=== PATIENT | female | born 1990 | race Caucasian/White ===

== ENCOUNTER 2016-04-17 12:15 | Day surgery (SDC) | payer BC, OTHER ==
[~2016-04-17 12:15] MED LIST: PREGABALIN 75 MG CAP PO ONE; ceFAZolin 2 GM/DEXTROSE 100 ML IV ONE
[2016-04-17] MEDS ORDERED: fentaNYL 250 MCG/5 ML INJ ONE (12:45)
[2016-04-17] MEDS ORDERED: PROPOFOL/EMULSION 500 MG/50 ML BOTTLE IV ONE (12:46)
[2016-04-17] MEDS ORDERED: CEFAZOLIN 2 GM/DEXTROSE/100 ML BAG IV ONE (13:25)
[2016-04-17] MEDS ORDERED: ACETAMINOPHEN 500 MG TAB PO ONE (13:30)
[2016-04-17] MEDS ORDERED: PREGABALIN 75 MG CAP PO ONE (13:30)
[2016-04-17] MEDS ORDERED: SCOPOLAMINE HYDROBROMIDE 1.5 MG PATCH TD ONE (13:30)
[2016-04-17] MEDS ORDERED: ROCURONIUM 50 MG/5 ML VIAL ONE (15:29)
[2016-04-17] MEDS ORDERED: NEOSTIGMINE METHYLSULFATE 5 MG/5 ML SYR ONE (15:29)
[2016-04-17] MEDS ORDERED: METOCLOPRAMIDE 10 MG/2 ML VIAL ONE (15:29)
[2016-04-17] MEDS ORDERED: KETOROLAC 30 MG/1 ML SDV ONE (15:29)
[2016-04-17] MEDS ORDERED: GLYCOPYRROLATE 0.2 MG/1 ML VIAL ONE (15:29)
[2016-04-17] MEDS ORDERED: ONDANSETRON 4 MG/2 ML VIAL ONE ×2 (15:29→20:39)
[2016-04-17] MEDS ORDERED: MIDAZOLAM 2 MG/2 ML VIAL ONE (15:36)
[2016-04-17] MEDS ORDERED: SKIN ADHESIVE (DERMABOND) 1 EACH TP ONE ×2 (15:41→18:31)
[2016-04-17] MEDS ORDERED: LIDOCAINE 1% 30 ML SDV ONE (15:41)
[2016-04-17] MEDS ORDERED: BUPIVACAINE/EPI 0.25% 30 ML SDV ONE (15:42)
[2016-04-17] MEDS ORDERED: epHEDrine SULFATE 10 MG/ML SYR ONE ×3 (16:01→16:36)
[2016-04-17] MEDS ORDERED: fentaNYL 100 MCG/2 ML INJ ONE (18:54)
[2016-04-17] MEDS ORDERED: HYDROmorphONE/DILAUDID 1 MG/ML SYR ONE (19:27)
--- NOTE | 2016-04-17 19:39 | DX ---
Fluoroscopy, Greater Than 1 Hour INDICATION: Right screw removal. FINDINGS: Five intraoperative fluoroscopic images are available for review, showing an instrument michael t was used to remove the screw. 78.1 seconds of fluoroscopic time was provided.
[2016-04-17] MEDS ORDERED: DEXAMETHASONE 4 MG/ML VIAL ONE (21:20)
== END 2016-04-17 21:50 | disposition home or self-care (01) ==
LOC: FPAT 12:15 → FSGY 21:50
PROVIDERS: ATTEND Orthopaedic Surgery Sports Medicine
PROC: 0LQJ0ZZ Repair Right Hip Tendon, Open Approach (ICD-10-PCS; principal; 2016-04-17 14:30)
PROC: 0QP Lower Bones, Removal (ICD-10-PCS; principal; 2016-04-17 14:30)
PROC: 0QS Lower Bones, Reposition (ICD-10-PCS; principal; 2016-04-17 14:30)
DX: M25.851 Other specified joint disorders, right hip (principal); T84.84XA Pain due to internal orthopedic prosthetic devices, implants and grafts, initial encounter; T84.89XA Other specified complication of internal orthopedic prosthetic devices, implants and grafts, initial encounter
CPT/HCPCS: C1713; J0690; J1100; J1170; J1885; J2250; J2405; J2704; J2710; J2765; J3010

== ENCOUNTER 2018-08-01 12:46 | Emergency (ER) | payer BC, OTHER ==
--- NOTE | 2018-08-01 14:52 | EDPHY ---
H & P Stated Complaint: R arm pain x 3 days, "getting worse" Time Seen by Provider: 08/01/18 14:51 HPI/ROS: HPI: This is a 28-year-old female who presents with Chief Complaint: R arm pain x 3 days, "getting worse" Location: Right wrist Quality: Injury and pain Duration: 3 days Signs and Symptoms: No bleeding, no radiation, no numbness, no weakness, no tingling, no incontinence, + decreased range of motion, no swelling, + pain, no fever Timing: Gradually worse Severity: 10/05 Context: Patient is right-hand dominant, presents with snowboarding 3 days ago and falling on her outstretched hand. She reports that she fell only 2 times and both times were on her bump. She does report that she used her right hand to stop her fall 1 time. She continued to snowboard all day without any pain in her arm or wrist. She woke up the next day and had discomfort in the radial aspect of her right wrist with decreased range of motion secondary to pain. Denies LOC/head injury/neck pain/dizziness/nausea/vomiting/amnesia. Modifying Factors: None Comment: ROS: A comprehensive 10 system review of systems is otherwise negative aside from elements mentioned in the history of present illness. MEDICAL/SURGICAL/SOCIAL HISTORY: Medical history: Labral tear in hip, hip dysplasia, autoimmune disorder, Ankolospondylyisis . LMP 1-2 weeks ago. Surgical history: Tonsillectomy, adenoidectomy Social history: Never smoked. CONSTITUTIONAL: Well-developed, well-nourished, adult white female, awake and alert, no obvious distress HEENT: Atraumatic and normocephalic, PERRL, EOMI. Nares patent; no rhinorrhea; no nasal mucosal edema. Tympanic membranes clear. Oropharynx clear, no exudate and moist pink mucosa. Airway patent. No lymphadenopathy. No meningismus. Cardiovascular: Normal S1/S2, regular rate, regular rhythm, without murmur rub or gallop. PULMONARY/CHEST: Symmetrical and nontender. Clear to auscultation bilaterally. Good air movement. No accessory muscle usage. ABDOMEN: Soft, nondistended, nontender, no rebound, no guarding, no peritoneal signs, no masses or organomegaly. No CVAT. EXTREMITIES: 2/2 pulses, strength 5/5, right WRIST: Extension to 70, flexion to 80, radial deviation to 20 degree, ulnar deviation to 30, no scaphoid tenderness, no tenderness over ulnar styloid, moderate tenderness over radial styloid. Able to wiggle all 5 fingers without any difficulty. no deformities, no clubbing, no cyanosis or edema. NEUROLOGICAL: no focal neuro deficits. GCS 15. SKIN: Warm and dry, no erythema. no rash. Good capillary refill. Source: Patient Exam Limitations: No limitations - Personal History LMP (Females 10-55): 8-14 Days Ago Current Tetanus/Diphtheria Vaccine: Unsure Current Tetanus Diphtheria and Acellular Pertussis (TDAP): Unsure - Medical/Surgical History Hx Asthma: No Hx Chronic Respiratory Disease: No Hx Diabetes: No Hx Cardiac Disease: No Hx Renal Disease: No Hx Cirrhosis: No Hx Alcoholism: No Hx HIV/AIDS: No Hx Splenectomy or Spleen Trauma: No Other PMH: Labral tear in hip hip dysplasia. Tosilectomy adnoidectomy. autoimmune disorder. Ankolospondylyisis - Social History Smoking Status: Never smoked Constitutional: Initial Vital Signs Temperature (C) 36.8 C 08/01/18 12:51 Heart Rate 119 H 08/01/18 12:51 Respiratory Rate 18 08/01/18 12:51 Blood Pressure 138/88 H 08/01/18 12:51 O2 Sat (%) 98 08/01/18 12:51 O2 Delivery Mode Room Air Allergies/Adverse Reactions: doxycycline Allergy (Verified 11/29/13 17:08) latex Allergy (Verified 11/29/13 17:08) oxycodone HCl [From Percocet] Allergy (Verified 04/17/16 13:22) Itching Home Medications: Medication Instructions Recorded Adderall 10 MG (RX) 1 tab DAILY PRN 11/29/13 Ambien 10 mg 1 tab HS PRN 11/29/13 Advil 1 tab DAILY PRN 03/20/16 Vitamin A 1 tab DAILY 03/20/16 Medical Decision Making - Diagnostics Imaging Results: Imaging Impressions Wrist X-Ray 08/01/18 12:55 Impression: Suspect nondisplaced incomplete distal radius fracture. Less likely old physeal scar. Findings discussed with Emergency Department physician, Dr. Carmen Abreu at 08/01/2018 13:52. Procedures: Procedure: Splint placement. A right sugar-tong Ortho Glass splint and sling were applied. After application of the splint I returned and re-examined the patient. The splint was adequately immobilizing the joint and distal to the splint the patient's circulation and sensation was intact. ED Course/Re-evaluation: Right wrist x-ray radiology read shows: Suspect nondisplaced incomplete distal radius fracture. Less likely old physeal scar. Placed in sugar-tong Ortho Glass splint, sling, orthopedic follow-up No signs of neurovascular compromise/tenting of skin/compartment syndrome/ extremities and joints examined above and below area of concern and are neurovascularly intact. This patient was seen under the supervision of my primary supervising physician. I evaluated and cared for this patient independently. Differential Diagnosis: Differential diagnosis includes but is not limited to radial fracture, carpal fracture, scaphoid fracture, sprain, nerve injury, tendon injury. Departure - Departure Disposition: Home, Routine, Self-Care Clinical Impression: Closed fracture of right distal radius Qualifiers: Encounter type: initial encounter Fracture morphology: unspecified fracture morphology Qualified Code(s): S52.501A - Unspecified fracture of the lower end of right radius, initial encounter for closed fracture Condition: Good Instructions: Wrist Fracture in Adults (ED), How to Use a Sling (ED), Splint Care (ED) Additional Instructions: Keep the splint dry and in place until seen by orthopedics. Wear sling while out of bed as needed for comfort. Take Tylenol 650 mg every 4 hours and/or Ibuprofen 600 mg every 8 hours with food as needed for pain. Apply ice for 30 minutes at a time; 2-3 times per day for the next 1-2 days. Follow up with Orthopedics in 7-10 days at which time they will evaluate and recommend with you if conservative management versus surgery is indicated. Return to the ER immediately if you experience new or worsening pain, discoloration, numbness, tingling, or any other symptoms that concern you. Referrals: CARLOS SAENZ [Other] - As per Instructions Yelitza Minaya MD [Medical Doctor] - As per Instructions
[2018-08-01 16:10] VITALS: BP 145/84
== END 2018-08-01 16:07 | disposition home or self-care (01) ==
PROC: 2W3EX1Z Immobilization of Right Hand using Splint (ICD-10-PCS; principal; 2018-08-01)
DX: M25.531 Pain in right wrist (principal); V00.311A Fall from snowboard, initial encounter; Y93.23 Activity, snow (alpine) (downhill) skiing, snowboarding, sledding, tobogganing and snow tubing; Y92.838 Other recreation area as the place of occurrence of the external cause
CPT/HCPCS: A4565